=== PATIENT | male | born 1970 | race Caucasian/White ===

== ENCOUNTER 2017-05-18 07:11 | Day surgery (SDC) | payer OTHER ==
[~2017-05-18 07:11] MED LIST: Bupivacaine 0.5%/EPINEPHrine 1:200,000 50 ML MDV ONE; Meropenem 500 MG SDV ONE
[2017-05-18] MEDS ORDERED: Acetaminophen 500 MG Tab PO ONE (07:30)
[2017-05-18] MEDS ORDERED: Celecoxib 200 MG Cap PO ONE (07:30)
[2017-05-18] MEDS ORDERED: Dextrose 5%-Lactated Ringers 1,000 ML IV SCH (08:15)
[2017-05-18] MEDS ORDERED: fentaNYL 250 MCG/5 ML SDV ONE (08:29)
[2017-05-18] MEDS ORDERED: Rocuronium 50 MG/5 ML Vial ONE (08:30)
[2017-05-18] MEDS ORDERED: Dexamethasone 4 MG/ML SDV ONE (08:30)
[2017-05-18] MEDS ORDERED: Neostigmine Methylsulfate 1 MG/ML 5 ML Syringe ONE (08:30)
[2017-05-18] MEDS ORDERED: Ondansetron 4 MG/2 ML SDV ONE (08:30)
[2017-05-18] MEDS ORDERED: Propofol 200 MG/20 ML SDV ONE (08:30)
[2017-05-18] MEDS ORDERED: Succinylcholine/Normal Saline 200 MG/10 ML Syringe ONE (08:30)
[2017-05-18] MEDS ORDERED: ceFAZolin 2 GM in Premix Bag 1 BAG IV ONE ×2 (08:45)
[2017-05-18] MEDS ORDERED: Ketamine 500 MG/5 ML MDV IV SCH (09:00)
[2017-05-18] MEDS ORDERED: Ropivacaine 58 ML, Dexamethasone 8 MG, EPINEPHrine 0.4 MG, Sodium Chloride 0.9% 19.6 ML NERVRT SCH ×4 (09:00)
[2017-05-18] MEDS ORDERED: fentaNYL 100 MCG/2 ML SDV ONE (09:18)
[2017-05-18] MEDS ORDERED: Ketorolac 60 MG/2 ML SDV IM ONE (10:10)
[2017-05-18] MEDS ORDERED: HYDROmorphone 2 MG Tab PO PRN (11:14)
[2017-05-18 12:41] VITALS: BP 113/65
--- NOTE | 2017-05-19 20:20 | OR ---
DATE OF PROCEDURE: 05/18/2017 PREOPERATIVE DIAGNOSIS: Incarcerated umbilical hernia. POSTOPERATIVE DIAGNOSES: 1. Incarcerated umbilical hernia. 2. Extensive intraabdominal adhesions. OPERATIVE PROCEDURE: Diagnostic laparoscopy with: 1. Repair of incarcerated umbilical hernia with mesh (23142). 2. Placement of Vicryl mesh to displace small bowel from pelvic and abdominal kraft, including overlying the newly placed mesh ([id number]). ANESTHESIA: General. ELECTRICAL DESIGN ENGINEER: SADIA Cedeno3. INDICATION FOR PROCEDURE: This is a 46-year-old presenting with increasingly symptomatic nonreducible umbilical hernia. Plan is to proceed with a repair using a laparoscopic approach with mesh. Potential risks including bleeding, infection, injury to underlying viscera, problems with mesh becoming infected or the hernia recurring were all reviewed, and the patient wishes to proceed. DETAILS OF THE PROCEDURE: The patient was taken to the operating room. After general endotracheal anesthesia was induced, a Platt catheter was inserted, and the abdomen prepped and draped. In the left lateral abdomen, a transverse incision was made and the peritoneal cavity entered under direct vision with an Optiview trocar and inflated to 15 mmHg pressure with CO2. Laparoscope was reinserted. No underlying trocar insertion site injuries were seen. Following this, bilateral transversus abdominis plane blocks were placed along the lateral mid abdomen bilaterally with the tip of the needle being directly visualized on each side to be within the transversus abdominis plane during the time of injection. Following this, 5 mm trocars were placed in left upper quadrant as well as left lower quadrant and general exploration was undertaken. The patient was noted to have some incarcerated omentum within the hernia. There were also some adhesions between the small bowel, omentum, and the lower abdominal pelvic wall. These were taken down, and at that point, the hernia was reduced with a combination of external pressure and Harmonic scalpel dissection. A 20.[address] mesh with the balloon positioning system was selected, was soaked in antibiotic-containing saline solution and placed in intraperitoneal location. A small stab wound beneath the umbilicus was used to pull up the balloon catheter, which was then inflated, thus pushing the mesh up into the abdominal wall. The mesh was then fixed with 2 circumferential firings of the absorbable tacking screws. A good fixation was noted. The balloon was deflated and removed. The patient was felt to be a high risk for serious adhesion formation between the mesh as well as the previous area of the hernia and adhesion formation in the lower abdomen and pelvis. Given this a 12-inch segment of Vicryl mesh was placed across from the lower end of the pelvis behind the bladder, along the pelvic sidewall, and up against the abdominal wall overlying the mesh. At that point, trocars were removed, the peritoneal cavity deflated. Incisions were closed with some 4-0 Vicryl stitch, the fascia in 12 mm site was closed with 0 Vicryl stitch as well, and dressing applied. The patient was taken to the recovery room in satisfactory condition. Mihai Wolf MD /[id number]
== END 2017-05-18 14:06 | disposition home or self-care (01) ==
LOC: JP.SDS 07:11
PROVIDERS: ATTEND Surgery
DX: K42.0 Umbilical hernia with obstruction, without gangrene (principal); K66.0 Peritoneal adhesions (postprocedural) (postinfection); I10 Essential (primary) hypertension; F17.200 Nicotine dependence, unspecified, uncomplicated; Z98.890 Other specified postprocedural states
CPT/HCPCS: 36415; 49653; 80048; 85027; 88302; A9270; C1781; J0171; J0690; J1100; J1885; J2185; J2405; J2704; J2795; J3010; J7030; J7042; J7050

== ENCOUNTER 2017-09-26 20:47 | Emergency (ER) | payer OTHER ==
[2017-09-26 21:29] VITALS: BP 181/99
--- NOTE | 2017-09-26 21:47 | EDM.PDOC ---
ED HPI GENERAL MEDICAL PROBLEM - General Chief Complaint: Bite:Animal, Insect Stated Complaint: WOOD TICK UNDER TOE SORE NOW Time Seen by Provider: 09/26/17 21:00 Source of Information: Reports: Patient, Family History Limitations: Reports: No Limitations - History of Present Illness INITIAL COMMENTS - FREE TEXT/NARRATIVE: 47-year-old male pulled the tick off of his foot under the fourth toe 5 days ago , and over the past 48 hours he's had some blistering and swelling develop with increased pain. No fevers or chills. There is even edema of his foot and ankle. Denies any joint discomfort or rashes. Onset: Gradual Location: Reports: Lower Extremity, Right Severity: Mild - Related Data Allergies Allergy/AdvReac Type Severity Reaction Status Date / Time No Known Allergies Allergy Verified 05/18/17 07:38 Home Meds: Home Meds Lisinopril 20 mg PO DAILY 05/14/17 [History] Naproxen Sodium 220 mg PO BID 05/14/17 [History] Past Medical History HEENT History: Reports: None Cardiovascular History: Reports: Hypertension Gastrointestinal History: Reports: None Musculoskeletal History: Reports: Fracture, Other (See Below) Other Musculoskeletal History: right shoulder pain, cracked pelvis Endocrine/Metabolic History: Reports: Obesity/BMI 30+ - Infectious Disease History Infectious Disease History: Reports: Chicken Pox - Past Surgical History HEENT Surgical History: Reports: Oral Surgery Cardiovascular Surgical History: Reports: None GI Surgical History: Reports: Appendectomy Endocrine Surgical History: Reports: None Musculoskeletal Surgical History: Reports: Other (See Below) Other Musculoskeletal Surgeries/Procedures:: right wrist external fixation Social & Family History - Tobacco Use Packs/Tins Daily: 0.1 - Caffeine Use Caffeine Use: Reports: Coffee ED ROS GENERAL - Review of Systems Review Of Systems: See Below Constitutional: Denies: Fever, Chills Respiratory: Denies: Shortness of Breath GI/Abdominal: Denies: Nausea, Vomiting Musculoskeletal: Denies: Joint Pain, Muscle Pain Neurological: Reports: No Symptoms ED EXAM, ANIMAL BITE - Physical Exam Exam: See Below Exam Limited By: No Limitations General Appearance: Alert, No Apparent Distress Respiratory/Chest: No Respiratory Distress Extremities: Other (Exam is otherwise limited to the right foot. The patient has blisters which have develop under the fourth toe and extending around the lateral aspects with some redness and edema of the forefoot) Course - Vital Signs Last Recorded V/S: Last Vital Signs Temp 96.1 F 09/26/17 21:34 Pulse 74 09/26/17 21:34 Resp 16 09/26/17 21:34 BP 181/99 H 09/26/17 21:34 Pulse Ox 98 09/26/17 21:34 - Re-Assessments/Exams Free Text/Narrative Re-Assessment/Exam: 09/26/17 21:46 Patient has developed some blood blisters and cellulitis from a recent tick bite. He'll be covered with doxycycline 100 mg twice a day for 10 days, and recheck in 3-4 days if he is not improving as he may need some steroids. Elevating the foot may help. Departure - Departure Time of Disposition: 22:17 Disposition: Home, Self-Care 01 Condition: Good Clinical Impression: Cellulitis Qualifiers: Site of cellulitis: extremity Site of cellulitis of extremity: lower extremity Laterality: right Qualified Code(s): L03.115 - Cellulitis of right lower limb - Discharge Information Instructions: Cellulitis, Adult, [id number] Referrals: Yaya Alan MD [Primary Care Provider] - Forms: ED Department Discharge Care Plan Goals: Take doxycycline 100 mg twice daily at least 7 days, elevate foot when able and recheck in 3-4 days if not improving satisfactorily.
== END 2017-09-26 22:17 | disposition home or self-care (01) ==
LOC: JP.ED 20:47
DX: S90.861A Insect bite (nonvenomous), right foot, initial encounter (principal); L03.115 Cellulitis of right lower limb; I10 Essential (primary) hypertension; Z79.899 Other long term (current) drug therapy; W57.XXXA Bitten or stung by nonvenomous insect and other nonvenomous arthropods, initial encounter
CPT/HCPCS: 99283

== ENCOUNTER 2018-10-22 22:54 | Emergency (ER) | payer OTHER ==
[2018-10-23 00:12] VITALS: BP 163/97; PULSE 80
--- NOTE | 2018-10-23 00:31 | EDM.PDOC ---
ED HPI GENERAL MEDICAL PROBLEM - General Chief Complaint: Skin Complaint Stated Complaint: LEG INFECTION Time Seen by Provider: 10/23/18 00:14 Source of Information: Reports: Patient History Limitations: Reports: No Limitations - History of Present Illness INITIAL COMMENTS - FREE TEXT/NARRATIVE: chief complain: right foot infection. This is 48 year old male presents to the ER for evaluation. about 3 days ago, notice a spot on the top of his right foot , looked like a bit, now the area is red, swollen and painful. reports similar to the tick bite he had last year. 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 denies any fever,chills, nausea, vomiting. chest pain or shortness of breath. Onset: Gradual Onset Date: 10/20/18 Duration: Day(s):, Getting Worse Location: Reports: Lower Extremity, Right Quality: Reports: Ache, Throbbing Severity: Moderate Improves with: Reports: Rest Worsens with: Reports: Other (walking) Associated Symptoms: Reports: No Other Symptoms right foot Pain Score (Numeric/FACES): 6 - Related Data Allergies Allergy/AdvReac Type Severity Reaction Status Date / Time No Known Allergies Allergy Verified 10/23/18 00:14 Home Meds: Home Meds Lisinopril 20 mg PO DAILY 05/14/17 [History] Naproxen Sodium 220 mg PO BID PRN 05/14/17 [History] Past Medical History HEENT History: Reports: None Cardiovascular History: Reports: Hypertension Gastrointestinal History: Reports: None Musculoskeletal History: Reports: Fracture, Other (See Below) Other Musculoskeletal History: right shoulder pain, cracked pelvis Endocrine/Metabolic History: Reports: Obesity/BMI 30+ - Infectious Disease History Infectious Disease History: Reports: Chicken Pox - Past Surgical History HEENT Surgical History: Reports: Oral Surgery Cardiovascular Surgical History: Reports: None GI Surgical History: Reports: Appendectomy, Hernia, Abdominal Endocrine Surgical History: Reports: None Musculoskeletal Surgical History: Reports: Other (See Below) Other Musculoskeletal Surgeries/Procedures:: right wrist external fixation Social & Family History - Tobacco Use Packs/Tins Daily: 0.2 - Caffeine Use Caffeine Use: Reports: Coffee - Alcohol Use Days Per Week of Alcohol Use: 3 Number of Drinks Per Day: 3 Total Drinks Per Week: 9 - Recreational Drug Use Recreational Drug Use: No ED ROS GENERAL - Review of Systems Review Of Systems: See Below Constitutional: Reports: No Symptoms HEENT: Reports: No Symptoms, Vertigo Cardiovascular: Reports: No Symptoms Endocrine: Reports: No Symptoms GI/Abdominal: Reports: No Symptoms : Reports: No Symptoms Musculoskeletal: Reports: Foot Pain Skin: Reports: Erythema Neurological: Reports: No Symptoms Psychiatric: Reports: No Symptoms Hematologic/Lymphatic: Reports: No Symptoms Immunologic: Reports: No Symptoms ED EXAM, SKIN/RASH Exam: See Below Exam Limited By: No Limitations General Appearance: Alert, WD/WN, No Apparent Distress Ears: Normal External Exam Throat/Mouth: Normal Lips Head: Atraumatic Neck: Normal Inspection Respiratory/Chest: No Respiratory Distress, Lungs Clear, Normal Breath Sounds, No Accessory Muscle Use, Chest Non-Tender Cardiovascular: Normal Peripheral Pulses, Regular Rate, Rhythm, No Edema, No Gallop, No JVD, No Murmur, No Rub Extremities: Pedal Edema, Increased Warmth, Redness, Other (right mid foot with erythema, pain, blisters noted no drainage.) Neurological: Alert, Oriented, CN II-XII Intact, Normal Cognition, Normal Gait, Normal Reflexes, No Motor/Sensory Deficits Psychiatric: Normal Affect Skin: Warm, Erythema, Wound/Incision Location, Skin: Lower Extremity, Right Characteristics: Erythematous Associated features: Warmth, Inflammation Lymphatic: No Adenopathy Course - Vital Signs Last Recorded V/S: Last Vital Signs Temp 35.3 C 10/23/18 00:14 Pulse 80 10/23/18 00:14 Resp 18 10/23/18 00:14 BP 163/97 H 10/23/18 00:14 Pulse Ox 100 10/23/18 00:14 - Orders/Labs/Meds Orders: Active Orders 24 hr Category Date Time Status CULTURE WOUND + SMEAR [RM] Stat Lab 10/23/18 00:29 Received - Re-Assessments/Exams Free Text/Narrative Re-Assessment/Exam: 10/23/18 00:40 will treat with doxy 100 mg po bid x 10 days discussed wound care return to ER if not improved or symptoms worsen. Departure - Departure Time of Disposition: 00:26 Disposition: Home, Self-Care 01 Condition: Good Clinical Impression: Abscess, Cellulitis of foot without toes, right, Cellulitis - Discharge Information *PRESCRIPTION DRUG MONITORING PROGRAM REVIEWED*: Not Applicable Instructions: Cellulitis, Adult Referrals: Yaya Alan MD [Primary Care Provider] - Forms: ED Department Discharge Care Plan Goals: Cellulitis of right foot excluding toes -Doxy 100 mg po two times a day for 10 days, start first dose tonight, then take second dose in morning, then evening til gone -keep off foot as much as possible, elevate -continue epsum salt soaking -wound check on Wednesday in Clinic, Urgent Care or ER Return to ER for any increased redness, pain, fever, chills, nausea, vomiting or any concerns. or not improving. - Problem List & Annotations (1) Cellulitis of foot without toes, right SNOMED Code(s): 852663937 Code(s): L03.115 - CELLULITIS OF RIGHT LOWER LIMB Status: Acute Priority : High Current Visit: Yes - Problem List Review Problem List Initiated/Reviewed/Updated: Yes - My Orders Last 24 Hours: My Active Orders 10/23/18 00:29 CULTURE WOUND + SMEAR [RM] Stat - Assessment/Plan Last 24 Hours: My Active Orders 10/23/18 00:29 CULTURE WOUND + SMEAR [RM] Stat Plan: Cellulitis of right foot excluding toes -Doxy 100 mg po two times a day for 10 days, start first dose tonight, then take second dose in morning, then evening til gone -keep off foot as much as possible, elevate -continue epsum salt soaking -wound check on Wednesday in Clinic, Urgent Care or ER Return to ER for any increased redness, pain, fever, chills, nausea, vomiting or any concerns. or not improving.
== END 2018-10-23 00:39 | disposition home or self-care (01) ==
LOC: JP.ED 22:54
DX: L02.611 Cutaneous abscess of right foot (principal); L03.115 Cellulitis of right lower limb; I10 Essential (primary) hypertension; F17.210 Nicotine dependence, cigarettes, uncomplicated; E66.9 Obesity, unspecified; Z68.36 Body mass index [BMI] 36.0-36.9, adult; Z79.899 Other long term (current) drug therapy
CPT/HCPCS: 87070; 87205; 99282

== ENCOUNTER 2020-12-08 10:19 | Emergency (ER) | payer OTHER ==
[2020-12-08] MEDS ORDERED: Sodium Chloride 0.9% 10 ML Syringe FLUSH PRN (10:29)
[2020-12-08] MEDS ORDERED: Aspirin 81 MG Tab.Chew PO ONE (10:30)
[2020-12-08] MEDS ORDERED: Metoprolol Tartrate 50 MG Tab PO ONE (10:35)
[2020-12-08] MEDS ORDERED: Ticagrelor 90 MG Tab PO ONE (10:36)
[2020-12-08] MEDS ORDERED: Heparin Sodium 5,000 Units/ML Vial IVPUSH ONE (10:36)
--- NOTE | 2020-12-08 10:43 | EDM.PDOC ---
ED HPI GENERAL MEDICAL PROBLEM - General Chief Complaint: Chest Pain Stated Complaint: CHEST PAIN/PAIN IN LEFT ARM Time Seen by Provider: 12/08/20 10:25 Source of Information: Reports: Patient, Old Records History Limitations: Reports: No Limitations - History of Present Illness INITIAL COMMENTS - FREE TEXT/NARRATIVE: 50 yo non-smoking male with no personal hx of CAD presents with anterior chest burning that began about an hour before arrival. He has had a little of this in recent mornings that was self-limited, but does not go away today. Has no personal hx of tobacco use or AODM. His FHx is not strong for CAD. He does have HTN and did take his meds today. His BP when last checked a few mos ago was about 140/80. He denies associated SOB, nausea or diaphoresis. Says it feels like heart burn. 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) - Related Data Allergies Allergy/AdvReac Type Severity Reaction Status Date / Time No Known Allergies Allergy Verified 12/08/20 10:29 Home Meds: Home Meds Lisinopril 20 mg PO DAILY 05/14/17 [History] Naproxen Sodium 220 mg PO BID PRN 05/14/17 [History] Past Medical History HEENT History: Reports: None Cardiovascular History: Reports: Hypertension Gastrointestinal History: Reports: None Musculoskeletal History: Reports: Fracture, Other (See Below) Other Musculoskeletal History: right shoulder pain, cracked pelvis Endocrine/Metabolic History: Reports: Obesity/BMI 30+ - Infectious Disease History Infectious Disease History: Reports: Chicken Pox, Novel Coronavirus - Past Surgical History Head Surgeries/Procedures: Reports: None HEENT Surgical History: Reports: Oral Surgery Cardiovascular Surgical History: Reports: None GI Surgical History: Reports: Appendectomy, Hernia, Abdominal Endocrine Surgical History: Reports: None Musculoskeletal Surgical History: Reports: Other (See Below) Other Musculoskeletal Surgeries/Procedures:: right wrist external fixation Social & Family History - Tobacco Use Used Tobacco, but Quit: No Second Hand Smoke Exposure: No - Caffeine Use Caffeine Use: Reports: Coffee - Alcohol Use Days Per Week of Alcohol Use: 2 Number of Drinks Per Day: 2 Total Drinks Per Week: 4 - Recreational Drug Use Recreational Drug Use: No ED ROS GENERAL - Review of Systems Review Of Systems: See Below Constitutional: Reports: No Symptoms HEENT: Reports: No Symptoms Respiratory: Reports: No Symptoms Cardiovascular: Reports: Chest Pain Endocrine: Reports: No Symptoms GI/Abdominal: Reports: No Symptoms : Reports: No Symptoms Musculoskeletal: Reports: No Symptoms Skin: Reports: No Symptoms Neurological: Reports: No Symptoms ED EXAM, GENERAL - Physical Exam Exam: See Below Exam Limited By: No Limitations General Appearance: Alert, WD/WN, No Apparent Distress Eye Exam: Bilateral Eye: Normal Inspection Ears: Normal External Exam, Normal Canal, Hearing Grossly Normal Ear Exam: Bilateral Ear: Auricle Normal, Canal Normal Nose: Normal Inspection, No Blood Throat/Mouth: Normal Inspection, Normal Lips, Normal Oropharynx, Normal Voice, No Airway Compromise Head: Atraumatic, Normocephalic Neck: Normal Inspection Respiratory/Chest: No Respiratory Distress, Lungs Clear, Normal Breath Sounds, No Accessory Muscle Use, Chest Non-Tender Cardiovascular: Regular Rate, Rhythm, No Edema GI/Abdominal: Normal Bowel Sounds, Soft, Non-Tender, No Distention Extremities: Normal Inspection, Normal Range of Motion, Non-Tender, No Pedal Edema. No: Henny's Sign Neurological: Alert, Oriented, CN II-XII Intact, Normal Cognition, No Motor/Sensory Deficits Psychiatric: Normal Affect, Normal Mood Skin Exam: Warm, Dry, Intact, Normal Color, No Rash #1 Interpretation EKG Date: 12/08/20 Time: 10:20 Rhythm: NSR Rate (Beats/Min): 95 [place]: Normal P-Wave: Present QRS: Normal ST-T: Elevated (ant and inf leads with ST elevation) QT: Normal Comparison: NA - No Prior EKG #2 Interpretation EKG Date: 12/08/20 Time: 10:55 Rhythm: NSR Rate (Beats/Min): 64 [place]: Normal P-Wave: Present QRS: Normal ST-T: Elevated (anterior/inferior leads persisting) Comparison: Change From Previous EKG (rate slowed from 95/min.) Course - Vital Signs Text/Narrative:: Dr. Anamika Teague cardiology accepted @ 1110h Last Recorded V/S: Last Vital Signs Temp 36.8 C 12/08/20 10:51 Pulse 63 12/08/20 11:00 Resp 7 L 12/08/20 11:00 BP 111/63 12/08/20 11:00 Pulse Ox 96 12/08/20 11:00 - Orders/Labs/Meds Orders: Active Orders 24 hr Category Date Time Status Cardiac Monitoring [RC] .As Directed Care 12/08/20 10:29 Active Chest 1V Frontal [CR] Stat Exams 12/08/20 10:37 Ordered UA W/MICROSCOPIC [URIN] Stat Lab 12/08/20 10:30 Ordered Heparin Sodium/D5W [Heparin 25,000 Units in D5W 500 ML] Med 12/08/20 10:45 Active 25,000 units in 500 ml IV TITRATE Lactated Ringers @ 150 MLS/HR(1,000ml) Med 12/08/20 11:15 Ordered Lactated Ringers [Ringers, Lactated] 1,000 ml IV ASDIRECTED Nitroglycerin [Nitrostat] Med 12/08/20 10:37 Active 0.4 mg SL Q5M PRN Sodium Chloride 0.9% [Saline Flush] Med 12/08/20 10:29 Active 10 ml FLUSH ASDIRECTED PRN Tenecteplase [Tnkase] Med 12/08/20 11:30 Once 50 mg IV ONETIME ONE Saline Lock Insert [OM.PC] Routine Oth 12/08/20 10:29 Ordered EKG 12 Lead [EK] Routine Ther 12/08/20 10:29 Ordered EKG 12 Lead [EK] Routine Ther 12/08/20 10:53 Ordered Medication Orders Heparin Sodium/Dextrose (Heparin 25,000 Units In D5w 500 Ml) 25,000 units in 500 mls @ 20 mls/hr IV TITRATE KENNEY Lactated Ringer's (Ringers, Lactated) 1,000 mls @ 150 mls/hr IV ASDIRECTED KENNEY Nitroglycerin (Nitroglycerin 0.4 Mg Tab.Sl) 0.4 mg SL Q5M PRN PRN Reason: Chest Pain Last Admin: 12/08/20 10:49 Dose: 0.4 mg Documented by: Admin: 12/08/20 10:44 Dose: 0.4 mg Documented by: TAURUS Sodium Chloride (Sodium Chloride 0.9% 10 Ml Syringe) 10 ml FLUSH ASDIRECTED PRN PRN Reason: Keep Vein Open Last Admin: 12/08/20 10:35 Dose: 10 ml Documented by: TAURUS Tenecteplase (Tenecteplase 50 Mg Kit) 50 mg IV ONETIME ONE Stop: 12/08/20 11:31 Labs: Laboratory Tests 12/08/20 12/08/20 Range/Units 10:30 10:30 WBC 6.6 (4.5-11.0) K/uL RBC 5.65 (4.30-5.90) M/uL Hgb 17.2 H D (12.0-15.0) g/dL Hct 49.8 (40.0-54.0) % MCV 88 (80-98) fL MCH 30 (27-31) pg MCHC 35 (32-36) % Plt Count 164 (150-400) K/uL Sodium 141 (140-148) mmol/L Potassium 3.6 (3.6-5.2) mmol/L Chloride 104 (100-108) mmol/L Carbon Dioxide 26 (21-32) mmol/L Anion Gap 11.4 (5.0-14.0) mmol/L BUN 21 H (7-18) mg/dL Creatinine 1.1 (0.8-1.3) mg/dL Est Cr Clr Drug Dosing 80.34 mL/min Estimated GFR (MDRD) > 60 (>60) Glucose 112 H (74-106) mg/dL Calcium 9.9 D (8.5-10.1) mg/dL Troponin I 0.019 (0.000-0.056) ng/mL Meds: Medications Generic Name Dose Route Start Last Admin Trade Name Freq PRN Reason Stop Dose Admin Heparin Sodium/Dextrose 25,000 units in 500 mls @ 20 mls/hr 12/08/20 10:45 Heparin 25,000 Units In D5w 500 Ml IV TITRATE KENNEY 1,000 UNITS/HR Lactated Ringer's 1,000 mls @ 150 mls/hr 12/08/20 11:15 Ringers, Lactated IV ASDIRECTED KENNEY Nitroglycerin 0.4 mg 12/08/20 10:37 12/08/20 10:49 Nitroglycerin 0.4 Mg Tab.Sl SL 0.4 mg Q5M PRN Administration Chest Pain Sodium Chloride 10 ml 12/08/20 10:29 12/08/20 10:35 Sodium Chloride 0.9% 10 Ml Syringe FLUSH 10 ml ASDIRECTED PRN Administration Keep Vein Open Tenecteplase 50 mg 12/08/20 11:30 Tenecteplase 50 Mg Kit IV 12/08/20 11:31 ONETIME ONE Discontinued Medications Generic Name Dose Route Start Last Admin Trade Name Freq PRN Reason Stop Dose Admin Aspirin 324 mg 12/08/20 10:30 12/08/20 10:35 Aspirin 81 Mg Tab.Chew PO 12/08/20 10:31 324 mg ONETIME ONE Administration Heparin Sodium (Porcine) 5,000 units 12/08/20 10:36 12/08/20 10:45 Heparin Sodium 5,000 Units/Ml Vial IVPUSH 12/08/20 10:37 5,000 units ONETIME ONE Administration Metoprolol Tartrate 50 mg 12/08/20 10:35 12/08/20 10:44 Metoprolol Tartrate 50 Mg Tab PO 12/08/20 10:36 50 mg ONETIME ONE Administration Tenecteplase 50 mg 12/08/20 11:14 Tenecteplase 50 Mg Kit IV 12/08/20 11:15 STAT STA Protocol Ticagrelor 180 mg 12/08/20 10:36 12/08/20 10:44 Ticagrelor 90 Mg Tab PO 12/08/20 10:37 180 mg ONETIME ONE Administration - Re-Assessments/Exams Free Text/Narrative Re-Assessment/Exam: 12/08/20 10:53 pain is much better after NTG #1, a second NTG SL given with pain now almost gone. Departure - Departure Time of Disposition: 11:30 Disposition: DC/Tfer to Acute Hospital 02 Reason for Transfer *Q: Primary PCI Indicated Condition: Serious Clinical Impression: STEMI (ST elevation myocardial infarction) Qualifiers: Involved coronary artery: unspecified coronary artery Qualified Code(s): I21.3 - ST elevation (STEMI) myocardial infarction of unspecified site Referrals: Yaya Alan MD [Primary Care Provider] - Forms: ED Department Discharge Sepsis Event Note (ED) - Focused Exam Vital Signs: Vital Signs Temp Pulse Pulse Resp BP BP Pulse Ox 12/08/20 11:00 63 7 L 111/63 96 12/08/20 10:54 65 16 105/60 97 12/08/20 10:52 77 12 125/85 96 12/08/20 10:51 36.8 C 100 21 H 181/112 H 94 L 12/08/20 10:49 125/85 12/08/20 10:44 79 160/107 H 12/08/20 10:40 36.8 C 100 21 H 181/112 H 94 L - My Orders Last 24 Hours: My Active Orders 12/08/20 10:29 Cardiac Monitoring [RC] .As Directed Sodium Chloride 0.9% [Saline Flush] 10 ml FLUSH ASDIRECTED PRN Saline Lock Insert [OM.PC] Routine EKG 12 Lead [EK] Routine 12/08/20 10:30 UA W/MICROSCOPIC [URIN] Stat 12/08/20 10:37 Chest 1V Frontal [CR] Stat Nitroglycerin [Nitrostat] 0.4 mg SL Q5M PRN 12/08/20 10:45 Heparin Sodium/D5W [Heparin 25,000 Units in D5W 500 ML] 25,000 units in 500 ml IV TITRATE 12/08/20 10:53 EKG 12 Lead [EK] Routine 12/08/20 11:15 Lactated Ringers @ 150 MLS/HR(1,000ml) Lactated Ringers [Ringers, Lactated] 1,000 ml IV ASDIRECTED 12/08/20 11:30 Tenecteplase [Tnkase] 50 mg IV ONETIME ONE - Assessment/Plan Last 24 Hours: My Active Orders 12/08/20 10:29 Cardiac Monitoring [RC] .As Directed Sodium Chloride 0.9% [Saline Flush] 10 ml FLUSH ASDIRECTED PRN Saline Lock Insert [OM.PC] Routine EKG 12 Lead [EK] Routine 12/08/20 10:30 UA W/MICROSCOPIC [URIN] Stat 12/08/20 10:37 Chest 1V Frontal [CR] Stat Nitroglycerin [Nitrostat] 0.4 mg SL Q5M PRN 12/08/20 10:45 Heparin Sodium/D5W [Heparin 25,000 Units in D5W 500 ML] 25,000 units in 500 ml IV TITRATE 12/08/20 10:53 EKG 12 Lead [EK] Routine 12/08/20 11:15 Lactated Ringers @ 150 MLS/HR(1,000ml) Lactated Ringers [Ringers, Lactated] 1,000 ml IV ASDIRECTED 12/08/20 11:30 Tenecteplase [Tnkase] 50 mg IV ONETIME ONE
[2020-12-08] MEDS: Nitroglycerin 0.4 MG Tab.SL SL PRN ×2 (10:44→10:49)
[2020-12-08] MEDS ORDERED: Heparin Sodium/D5W 25,000 UNITS/500 ML BAG IV SCH (10:45)
[2020-12-08] MEDS ORDERED: Tenecteplase 50 MG Kit IV STA (11:14)
[2020-12-08] MEDS ORDERED: Lactated Ringers 1,000 ML IV SCH (11:15)
[2020-12-08] MEDS ORDERED: Tenecteplase 50 MG Kit IV ONE (11:30)
[2020-12-08 11:35] VITALS: BP 142/87; PULSE 67
--- NOTE | 2020-12-09 10:11 | CR ---
CHEST: Portable 12/08/2020 at 11:04 AM CLINICAL HISTORY:Chest pain, hypertension COMPARISON:None FINDINGS: The heart size, pulmonary vascularity and hilar structures are normal. No infiltrate effusion or pneumothorax is seen. IMPRESSION: No acute cardiopulmonary process.
== END 2020-12-08 11:40 ==
LOC: JP.ED 10:19
DX: I21.3 ST elevation (STEMI) myocardial infarction of unspecified site (principal); I10 Essential (primary) hypertension; E66.9 Obesity, unspecified; Z68.34 Body mass index [BMI] 34.0-34.9, adult; Z86.16 Personal history of COVID-19; Z79.899 Other long term (current) drug therapy
CPT/HCPCS: 36415; 71045; 80048; 84484; 85027; 92977; 93005; 96365; 96376; 99285; A9270; J1644; J3101; J7120